=== PATIENT | male | born 1975 | race Caucasian/White ===

== ENCOUNTER 2024-01-03 13:55 | Emergency (ER) | payer SELFPAY ==
[2024-01-03 14:00] VITALS: BP 172/105
--- NOTE | 2024-01-03 14:32 | ED.GENMED ---
History of Present Illness
<Malathi Méndez PA-C - Last Filed: 01/17/24 00:24>
General
Chief Complaint: Abdominal Pain
Source: patient
Exam Limitations: none
Time Seen by Provider: 01/03/24 14:19
Nursing documentation reviewed up to this point in time: agreed with
Travel History
Have you had any contact with someone who has COVID-19?: No
Do you have any symptoms of coronavirus? Fever > 100 degrees, chills, cough, shortness of breath, sore throat, loss of taste or smell, muscle aches, or headache?: No
History of Present Illness
History of Present Illness:
PT IS A 48 Y/O M with ho htn, hld diverticulitis and perforation, no surgeries
here with 4 days genearlized abd pain, lack of appetite, slightly dec stooling nausea
then focally got pain in LLQ and it worsened today with low grade temp 100
no bloody stool, vomiting, urinary discomfrot
has had hopsitalizations for divertic before
most recent exac treated empiricaly 2 mo ago by his [facility]
pt knows he is supposed to see colorectal for consultaitno but hasn't.
Past History
<Malathi Méndez PA-C - Last Filed: 01/17/24 00:24>
Past History
ED Past Medical History: HTN, Hypercholesterolemia and Other (sleep apnea, diverticulosis)
ED Past Surgical History: Other (hernia)
Social History
Tobacco: Non-smoker
Personal:
Living: with family
Review of Systems
<Malathi Méndez PA-C - Last Filed: 01/17/24 00:24>
Review of Systems
Allergies reviewed?: Yes
All Other Systems: Not applicable
Phy Exam
<MARGY Vogel Last Filed: 01/17/24 00:24>
Physical Exam
Physical Exam:
GENERAL: Alert , in no apparent distress
EYE: pupils equal and reactive
NECK: Supple
ENT: o/p clr, mmm.
CARDIAC: Regular rate and rhythm ., no edema
LUNGS: Clear breath sounds bilaterally, no acute respiratory distress, no wheezes/rales/rhonchi
ABDOMEN: Soft, mild left lower quad tendenress, no r/g, no cvat, normal bowel sounds
NEUROLOGICAL: Alert and oriented, no focal neuro deficits
SKIN: Warm and dry, skin intact.
MUSCULOSKELETAL: No edema, well perfused.
PSYCH: Normal and appropriate interaction.
Course
<Malathi Méndez PA-C - Last Filed: 01/17/24 00:24>
Orders/Labs/Results
Orders:
Orders
01/03/24 14:35
CT Abd/Pel (IV only)-[facility] only Urgent
Comment:
Reason For Exam: llq pain, h/o divertic
0.9% Sodium Chloride 1000 ml [Nss] 1,000 ml IV BOLUS
HYDROmorphone [Dilaudid] 1 mg IV NOW STA
01/03/24 15:06
Complete Blood Count/With Diff Urgent
Comprehensive Metabolic Panel Urgent
Urinalysis Reflex To Culture Urgent
Date Specimen was Collected: 01/03/24
Time Specimen was Collected: 14:51
Urine Microscopic Reflex Cult Urgent
01/03/24 16:57
Ciprofloxacin [Cipro] 500 mg PO NOW STA
HYDROmorphone [Dilaudid] 1 mg IV NOW STA
MetroNIDAZOLE [Flagyl] 500 mg PO NOW STA
01/03/24 17:04
Ciprofloxacin HCl [Cipro] 500 mg PO NOW STA
01/03/24 17:06
Ciprofloxacin HCl [Cipro] 500 mg .ROUTE .STK-MED ONE
Abnormal Lab Results
01/03/24
15:06
RBC 4.28 L 10^6/uL
(4.70-6.10)
Hct 36.1 L %
(39.0-52.0)
MCH 31.5 H pg
(27.0-31.0)
MCHC 37.4 H g/dL
(33.0-37.0)
Absolute Lymphs (auto) 1.0 L 10^3/uL
(1.2-3.4)
Absolute Monos (auto) 0.7 H 10^3/uL
(0.1-0.6)
Neutrophils % 77.3 H %
(42.2-75.2)
Lymphocytes % 13.1 L %
(20.5-51.1)
Leukocyte Esterase Rfl Trace A
(Negative)
Urine Bacteria (Reflex) Few A
(Negative)
01/03/24 15:06
01/03/24 15:06
Vital Signs
Initial and Last Documented VS:
Initial Vital Signs
Temp Pulse Resp BP Pulse Ox
98.4 F 71 16 172/105 99
01/03/24 14:00 01/03/24 14:00 01/03/24 14:00 01/03/24 14:00 01/03/24 14:00
Last Documented Vital Signs
Temp Pulse Resp BP Pulse Ox
98.4 F 76 18 166/103 97
01/03/24 14:00 01/03/24 17:12 01/03/24 17:12 01/03/24 17:12 01/03/24 17:12
Hilllt;David Mullen PA-C - Last Filed: 01/06/24 23:45>
Orders/Labs/Results
Orders:
Orders
01/03/24 14:35
CT Abd/Pel (IV only)-[facility] only Urgent
Comment:
Reason For Exam: llq pain, h/o divertic
0.9% Sodium Chloride 1000 ml [Nss] 1,000 ml IV BOLUS
HYDROmorphone [Dilaudid] 1 mg IV NOW STA
01/03/24 15:06
Complete Blood Count/With Diff Urgent
Comprehensive Metabolic Panel Urgent
Urinalysis Reflex To Culture Urgent
Date Specimen was Collected: 01/03/24
Time Specimen was Collected: 14:51
Urine Microscopic Reflex Cult Urgent
01/03/24 16:57
Ciprofloxacin [Cipro] 500 mg PO NOW STA
HYDROmorphone [Dilaudid] 1 mg IV NOW STA
MetroNIDAZOLE [Flagyl] 500 mg PO NOW STA
01/03/24 17:04
Ciprofloxacin HCl [Cipro] 500 mg PO NOW STA
01/03/24 17:06
Ciprofloxacin HCl [Cipro] 500 mg .ROUTE .STK-MED ONE
Abnormal Lab Results
01/03/24
15:06
RBC 4.28 L 10^6/uL
(4.70-6.10)
Hct 36.1 L %
(39.0-52.0)
MCH 31.5 H pg
(27.0-31.0)
MCHC 37.4 H g/dL
(33.0-37.0)
Absolute Lymphs (auto) 1.0 L 10^3/uL
(1.2-3.4)
Absolute Monos (auto) 0.7 H 10^3/uL
(0.1-0.6)
Neutrophils % 77.3 H %
(42.2-75.2)
Lymphocytes % 13.1 L %
(20.5-51.1)
Leukocyte Esterase Rfl Trace A
(Negative)
Urine Bacteria (Reflex) Few A
(Negative)
01/03/24 15:06
01/03/24 15:06
Vital Signs
Initial and Last Documented VS:
Initial Vital Signs
Temp Pulse Resp BP Pulse Ox
98.4 F 71 16 172/105 99
01/03/24 14:00 01/03/24 14:00 01/03/24 14:00 01/03/24 14:00 01/03/24 14:00
Last Documented Vital Signs
Temp Pulse Resp BP Pulse Ox
98.4 F 76 18 166/103 97
01/03/24 14:00 01/03/24 17:12 01/03/24 17:12 01/03/24 17:12 01/03/24 17:12
<Malathi Méndez PA-C - Last Filed: 01/17/24 00:24>
MDM/Problems Addressed
Differential Diagnosis Includes:
DIVERITCULTIS, PERFORATION, CONSTIPATION
MDM/Problems Addressed:
48 y/o M with h/o diverticulitis.
here with similar pain to previous
doesn't usually respond well to augmentin
felt feverish today
tender LLQ without guarding/rebound
plan on labs, ct
signed out to kris ortiz.
<David Mullen PA-C - Last Filed: 01/06/24 23:45>
*Critical Care Note
Total Time (30-74mins, 75-104mins- exclusive of procedures): Not Applicable
<David Mullen PA-C - Last Filed: 01/06/24 23:45>
Update Note
Update Note:
Assumed care of patient pending CT scan. Patient returned from CT scan requesting more pain medicine. CT demonstrates moderate advanced acute diverticulitis without evidence of complication including perforation or abscess. Vital signs remained
stable. Will give another dose of pain medicine and started on Cipro and Flagyl by mouth and discharged home with GI follow-up
ED Attending Note
<Malathi Méndez PA-C - Last Filed: 01/17/24 00:24>
-
Portions of this chart may have been created with voice recognition software.� Occasional wrong word or��sound alike� substitutions may have occurred due to the inherent limitations of voice recognition software.
Discharge Plan
Departure
Patient Disposition: Home (Routine Discharge)
Date of Disposition: 01/03/24
Time of Disposition: 17:00
Patient with high blood pressure during this ER visit?: No
Discharge Problem:
Acute diverticulitis
Instructions: Diverticulitis (DC)
Prescriptions:
New
ciprofloxacin HCl [Cipro] 500 mg tablet
500 mg PO BID Qty: 20 0RF
metronidazole 500 mg tablet
500 mg PO Q8H Qty: 30 0RF
oxycodone-acetaminophen [Percocet] 5-325 mg tablet
1 tab PO TID PRN (Reason: Pain) Qty: 10 0RF
No Action
atorvastatin 20 MG tablet
20 mg PO DAILY
losartan 100 MG tablet
100 mg PO DAILY
omega-3 acid ethyl esters 1 gram capsule
2 g PO BID
acetaminophen 325 mg Tablet
650 mg PO Q6HPRN PRN (Reason: mild pain/ fever>100.5F) Qty: 0 0RF
amoxicillin-pot clavulanate 875-125 mg tablet
1 tab PO Q12H Qty: 20 0RF
Rx Instructions:
take for 10 days
Referrals:
NONE,* [Family Provider] -
Activity Restrictions/Additional Instructions:
Take antibiotics as directed. Drink plenty of fluids. Please return here for increasing pain fever vomiting or other concerning findings. Follow-up with your GI physician otherwise
Interventions
Interventions:
*Risk Screen - Suicide Last Done: 01/03/24 14:00
*General Assessment Last Done: 01/03/24 15:15
*Neglect/Abuse Screening Last Done: 01/03/24 14:00
ED- Fall Risk Assessment Last Done: 01/03/24 15:00
*ED COVID-19 Vaccine History Last Done: 01/03/24 14:00
*Nursing Disposition Last Done: 01/03/24 17:16
MX-Uvblcy-Ohboownxpv Assessment Last Done: 01/03/24 15:00
Discharge Date and Time
Discharge Date/Time: 01/03/24 17:37
[2024-01-03] MEDS: NSS 1000 IV (15:06)
[2024-01-03] MEDS: DILAUDID 1 MG IV ×2 (15:06→17:07)
[2024-01-03 15:14] VITALS: BMI 33.5
[2024-01-03 15:21] LABS: % Basophils 0.3 % (0-2); % Eosinophils 0.4 % (0-6); % Immature Granulocytes 0.1 % (0-0.5); % Lymphocytes 13.1 % (20.5-51.1); % Monocytes 8.8 % (1.7-9.3); % Neutrophils 77.3 % (42.2-75.2); Absolute Monocytes 0.7 10^3/uL (0.1-0.6); Hematocrit 36.1 % (39.0-52.0); Hemoglobin 13.5 g/dL (13.0-18.0); Mean Corp Hgb Conc. 37.4 g/dL (33.0-37.0); Mean Corpuscular Hgb 31.5 pg (27.0-31.0); Mean Corpuscular Volume 84.3 fL (80.0-94.0); Mean Platelet Volume 8.9 fL (7.4-10.4); Nucleated Red Blood Cells % 0 % (-); Platelet Count 175 10^3/uL (130-400); Red Blood Cell Count 4.28 10^6/uL (4.70-6.10); Red Cell Dist. Width 11.8 % (11.5-14.5); White Blood Cell Count 7.8 10^3/uL (4.8-10.8)
[2024-01-03 15:27] LABS: Urine Albumin Negative (Neg - Trace); Urine Bilirubin Negative (Negative); Urine Character Clear (Clear); Urine Color Straw; Urine Glucose Negative (Negative); Urine Ketone Negative (Negative); Urine Leukocyte Trace (Negative); Urine Nitrite Negative (Negative); Urine Occult Blood Negative (Negative); Urine Specific Gravity 1.005 (<1.030); Urine Urobilinogen Negative (Neg - 1+)
[2024-01-03 15:35] LABS: ALT (SGPT) 44 U/L (0-50); AST (SGOT) 31 U/L (17-59); Albumin 4.4 g/dl (3.5-5.0); Alkaline Phosphatase 74 U/L (38-126); Blood Urea Nitrogen 10 mg/dl (9-20); Carbon Dioxide 28 mmol/L (22-30); Chloride 102 mmol/L (98-107); Estimated Creatinine Clearance > 125 ml/min; Glucose 85 mg/dl (70-99); Potassium 3.7 mmol/L (3.5-5.1); Sodium 135 mmol/L (135-145); Total Bilirubin 1.1 mg/dl (0.2-1.3); Total Protein 7.3 g/dl (6.3-8.2); eGFR > 60.00
[2024-01-03 15:41] LABS: Urine Bacteria Few (Negative); Urine Red Blood Cell 0-2 /HPF (0-2); Urine Squamous Cell 0-2 /LPF (Few); Urine White Cell 0-2 /HPF (0-5)
[2024-01-03] MEDS: FLAGYL 500 MG PO (17:07)
[2024-01-03] MEDS: CIPRO 500 MG PO (17:07)
[2024-01-03 17:12] VITALS: BP 166/103
== END 2024-01-03 17:37 | disposition home or self-care (01) ==
LOC: EMR 13:55
PROVIDERS: Physician Assistant; EMERGENCY PHYSICIAN Emergency Medicine
DX: K57.32 Diverticulitis of large intestine without perforation or abscess without bleeding (principal); R11.0 Nausea; I10 Essential (primary) hypertension; E78.00 Pure hypercholesterolemia, unspecified; G47.30 Sleep apnea, unspecified
CPT/HCPCS: 99285; 96374; 96376; 96361; 74177; 80053; 81003; 81015; 85025; Q9967